=== PATIENT | female | born 1945 | race Caucasian/White ===

== ENCOUNTER → 2024-02-11 | Outpatient (REF) | payer OTHER | LOC: M LAB REF 13:28 | PROVIDERS: ATTEND Internal Medicine | DX: M10.9 Gout, unspecified (principal) ==

== ENCOUNTER → 2024-06-02 | Outpatient (CLI) | payer OTHER | LOC: M WUC 09:41 | PROVIDERS: ATTEND Internal Medicine | DX: M25.551 Pain in right hip (principal) ==

== ENCOUNTER → 2024-08-10 | Outpatient (CLI) | payer MEDICARE | LOC: M PLAIMG 10:44 | PROVIDERS: ATTEND Internal Medicine | DX: M54.50 Low back pain, unspecified (principal) ==

== ENCOUNTER → 2025-02-13 | Outpatient (REF) | payer MEDICARE | LOC: M LAB REF 12:03 | PROVIDERS: ATTEND Internal Medicine | DX: M10.9 Gout, unspecified (principal); N39.0 Urinary tract infection, site not specified ==

== ENCOUNTER → 2025-03-07 | Outpatient (CLI) | payer MEDICARE | LOC: M WHC 15:39 | PROVIDERS: ATTEND Nurse Practitioner Family | DX: Z12.31 Encounter for screening mammogram for malignant neoplasm of breast (principal); R92.323 Mammographic fibroglandular density, bilateral breasts; Z13.820 Encounter for screening for osteoporosis; M85.88 Other specified disorders of bone density and structure, other site ==